=== PATIENT | male | born 1980 | race Hispanic/Latino ===

== ENCOUNTER 2017-12-30 10:18 | Emergency (ER) | payer BC ==
[~2017-12-30] VITALS: Ht 188 cm; Wt 66.7 kg
[2017-12-30] MEDS ORDERED: LIDOCAINE HCL 1% LOCAL INJ 20 ML VIAL INJ ONE (10:30)
[2017-12-30 11:09] VITALS: BP 143/95
== END 2017-12-30 11:20 | disposition home or self-care (01) ==
LOC: ER 10:18
DX: L02.416 Cutaneous abscess of left lower limb (principal); E11.9 Type 2 diabetes mellitus without complications
CPT/HCPCS: 10061; 99283; J2001

== ENCOUNTER → 2017-12-30 | Outpatient (CLI) | payer BC ==
[~2017-12-30] MED LIST: LIDOCAINE VISC 2% SOLN 15 ML UDC ONE
== END ==
LOC: WCC 08:56
PROVIDERS: ATTEND Internal Medicine Infectious Disease
DX: E11.9 Type 2 diabetes mellitus without complications (principal); L08.89 Other specified local infections of the skin and subcutaneous tissue; L02.426 Furuncle of left lower limb; B96.89 Other specified bacterial agents as the cause of diseases classified elsewhere; I10 Essential (primary) hypertension; S80.862A Insect bite (nonvenomous), left lower leg, initial encounter

== ENCOUNTER → 2018-01-05 | Outpatient (CLI) | payer BC ==
[~2018-01-05] MED LIST changes: +COLLAGENASE OINTMENT 30 GM TUBE ONE; -LIDOCAINE VISC 2% SOLN 15 ML UDC ONE; +LIDOCAINE/PRILOCAINE 2.5-2.5% KIT ONE
== END ==
LOC: WCC 08:30
PROVIDERS: ATTEND Internal Medicine Infectious Disease
DX: E11.9 Type 2 diabetes mellitus without complications (principal); L02.426 Furuncle of left lower limb; S80.862A Insect bite (nonvenomous), left lower leg, initial encounter; L08.89 Other specified local infections of the skin and subcutaneous tissue; I10 Essential (primary) hypertension; B96.89 Other specified bacterial agents as the cause of diseases classified elsewhere

== ENCOUNTER → 2018-01-06 | Outpatient (CLI) | payer BC | LOC: WCC 09:04 | PROVIDERS: ATTEND Internal Medicine Infectious Disease | DX: E11.9 Type 2 diabetes mellitus without complications (principal); L08.89 Other specified local infections of the skin and subcutaneous tissue; B96.89 Other specified bacterial agents as the cause of diseases classified elsewhere; L02.426 Furuncle of left lower limb; I10 Essential (primary) hypertension; S80.862A Insect bite (nonvenomous), left lower leg, initial encounter | CPT/HCPCS: 87071; 87075; 87186; 87205 ==

== ENCOUNTER → 2018-01-13 | Outpatient (CLI) | payer BC | LOC: WCC 08:56 | PROVIDERS: ATTEND Internal Medicine Infectious Disease | DX: T81.89XA Other complications of procedures, not elsewhere classified, initial encounter (principal); E11.9 Type 2 diabetes mellitus without complications; B95.7 Other staphylococcus as the cause of diseases classified elsewhere; B96.89 Other specified bacterial agents as the cause of diseases classified elsewhere; I10 Essential (primary) hypertension; L02.426 Furuncle of left lower limb; S80.862A Insect bite (nonvenomous), left lower leg, initial encounter; L08.89 Other specified local infections of the skin and subcutaneous tissue ==